=== PATIENT | female | born 1995 | race Caucasian/White ===

== ENCOUNTER 2021-03-14 18:59 | Emergency (ER) | payer SELFPAY ==
[~2021-03-14] VITALS: Ht 157.5 cm; Wt 114.4 kg
[2021-03-14 19:01] VITALS: BP 144/86
--- NOTE | 2021-03-14 19:22 | NUR ---
PT AMB TO ROOM AT THIS TIME, STEADY GAIT. PT REPORTS MISSING A STEP AND LANDING ON HER ARM. DENIES LOC/ HEAD TRAUMA. ERP TO BEDSIDE FOR EVAL AND POC
[2021-03-14] MEDS ORDERED: HYDROcodone/APAP 5/325 TABLET ONE (19:28)
[2021-03-14] MEDS ORDERED: HYDROcodone/APAP 5/325 TABLET PO PRN (19:30)
--- NOTE | 2021-03-14 19:34 | NUR ---
PT TO XRAY.
--- NOTE | 2021-03-14 20:47 | NUR ---
Patient/Caregiver given discharge instructions and they have confirmed that they understand the instructions. Patient ambulatory with steady gait. NAD, all questions answered appropriately, denies additional needs at this time. No personal belongings left in room after discharge.
== END 2021-03-14 20:47 | disposition home or self-care (01) ==
LOC: ED 19:30
DX: S52.522A Torus fracture of lower end of left radius, initial encounter for closed fracture (principal); W01.0XXA Fall on same level from slipping, tripping and stumbling without subsequent striking against object, initial encounter; Y93.89 Activity, other specified; Y92.009 Unspecified place in unspecified non-institutional (private) residence as the place of occurrence of the external cause; Y99.8 Other external cause status
CPT/HCPCS: 29125; 99284